=== PATIENT | male | born 1945 | race Caucasian/White ===

== ENCOUNTER → 2018-05-16 | Outpatient (CLI) | payer MEDICARE ==
--- NOTE | 2018-05-19 19:31 | SLEEPCENT ---
DATE OF PROCEDURE: 05/16/2018 ORDERED BY: Jackie Bland Nocturnal polysomnography was performed for evaluation of sleep physiology in this patient with history excessive somnolence and nonrestorative sleep who has comorbidities of coronary artery disease, hypertension and acid reflux disease. 6 hours and 25 minutes of data were reviewed. There were 256 minutes of sleep identified. Sleep latency was short at 16.5 minutes. Rapid eye movement (REM) sleep onset was delayed at 173 minutes. Sleep architecture was fragmented with initial poor progression. There were three REM cycles noted. Overall sleep efficiency was 67.2%. The patient's electrocardiogram showed a sinus rhythm with an average heart rate of 56 beats per minute. Rate ranged from 40-80 beats per minute. EEG showed some mild coarsening in background, otherwise normal waveforms for awake and sleep. No Focal events were identified. There were 128 respiratory events identified of 10 seconds in duration or greater for an apnea-hypopnea index of 30. The events were primarily obstructive, though 47 mixed and central apneas were seen. They were not exclusive to sleep stage nor body posture. Arousals from respiratory events occurred 17.6 times per hour and oxygen desaturations were seen to 90%. There was limb activity noted. Limb movement arousal index was only 4.7. IMPRESSION: Severe obstructive sleep apnea syndrome (G47.33). Apnea-hypopnea index of 30. RECOMMENDATIONS: The patient should be encouraged to return to the sleep disorder center for pressure therapy. In the interim, alcohol and sedative avoidance should be practiced and caution exercised during the operation of motor vehicles. Given the occurrence of central and mixed apneas, a bilevel device and backup rate may be necessary.
== END ==
LOC: M SLEEP 19:36
PROVIDERS: ATTEND Nurse Practitioner Family
DX: R40.0 Somnolence (principal)

== ENCOUNTER → 2018-06-14 | Outpatient (CLI) | payer MEDICARE ==
--- NOTE | 2018-06-20 23:22 | SLEEPCENT ---
DATE OF PROCEDURE: 06/14/2018 Ordered by: Jackie Bland Nocturnal polysomnography was performed for the titration of pressure therapy in this patient with obstructive sleep apnea syndrome. Apnea-hypopnea index of 30. For testing, a [employer] Mirage Quattro full face mask of large size was used, 4 cm of water pressure was initially applied circuit and the lights were extinguished. 6 hours and 52 minutes of data were reviewed. There are 259 minutes of sleep identified. Sleep latency was short at 13 minutes. REM latency was delayed at 241 minutes. Sleep architecture improved late in the study with optimal pressure therapy. Overall sleep efficiency was 64%. The patient's electrocardiogram showed a sinus rhythm with an average heart rate of 56 beats per minute. EEG showed normal waveforms for awake and sleep. Persistent respiratory events prompted an increase in C-PAP and despite optimal mask fit and minimal air leak the patient was changed to a bilevel device. Optimal pressure for palliation of respiratory events was found to be inspiratory 14 over expiratory 10 with which pressure the patient slept through REM without respiratory event or oxygen desaturation with some limb activity. Limb movement arousal index was 6.7. IMPRESSION Obstructive sleep apnea syndrome (G47.33) RECOMMENDATIONS Nightly use of pressure therapy delivered via bilevel device inspiratory 14 over expiratory of 10.
== END ==
LOC: M SLEEP 19:56
PROVIDERS: ATTEND Nurse Practitioner Family
DX: G47.33 Obstructive sleep apnea (adult) (pediatric) (principal)